=== PATIENT | male | born 1945 | race Caucasian/White ===

== ENCOUNTER 2017-02-19 12:07 | Emergency (ER) | payer MEDICARE, SELFPAY ==
[2017-02-19 08:47] LABS: BASO % 0.1 % (0.2-1.2); GRAN # 18.1 10_X3_uL (1.8-5.4); GRAN % 78.9 % (34.0-67.9); HEMATOCRIT 40.1 % (40-51); HEMOGLOBIN 12.8 g/dL (13.7-17.5); LYMPH # 3.4 10_X3_uL (1.3-3.6); LYMPH % 14.6 % (21.8-53.1); MEAN CORPUSCULAR HEMOGLOBIN 32.6 pg (27.0-33.0); MEAN CORPUSCULAR HGB CONC 31.9 g/dL (32.0-36.0); MEAN PLATELET VOLUME 11.3 fl (7.5-11.5); MONO # 1.5 10_X3_uL (0.3-0.8); MONO % 6.4 % (5.3-12.2); PLATELET COUNT 319 x10_3/uL (163-337); RED BLOOD COUNT 3.93 x10_6/uL (4.6-6.1); RED CELL DISTRIBUTION WIDTH 13.6 % (11.6-14.4)
[2017-02-19 08:55] LABS: BILIRUBIN,TOTAL 0.52 mg/dL (0.0-1.0); CALCIUM 10.5 mg/dL (8.7-10.7); CREATININE 1.6 mg/dL (0.6-1.3); POTASSIUM 4.4 mmol/L (3.5-5.1); TOTAL PROTEIN 7.3 gm/dL (6.4-8.2); URIC ACID 6.3 mg/dL (3.5-7.2)
[2017-02-19 08:58] LABS: CREATININE, URINE 174.7 mg/dl (33-250)
[2017-02-19 09:19] LABS: MICROALBUMIN < 12.0 mg/L (1.3-20.0)
[2017-02-19 12:40] LABS: URINE BILIRUBIN NEGATIVE (NEGATIVE); URINE BLOOD NEGATIVE (NEGATIVE); URINE GLUCOSE (UA) NORMAL (NORMAL); URINE KETONE NEGATIVE (NEGATIVE); URINE LEUKOCYTE ESTERASE 1+ (NEGATIVE); URINE NITRATE NEGATIVE (NEGATIVE); URINE PROTEIN TRACE (NEGATIVE); UROBILINOGEN NORMAL mg/dL (<1.0)
[2017-02-19 12:51] LABS: URINE BACTERIA TRACE (NONE SEEN); URINE RBC 0-5 /[HPF] (0-2); URINE SQUAMOUS EPITHELIAL CELL 0-10 /[HPF] (NONE SEEN); URINE WBC 0-5 /[HPF] (0-3)
== END 2017-02-19 13:23 ==
LOC: EDSTATUS 12:07 → ER 12:08
PROVIDERS: Family Medicine
DX: E11.9 Type 2 diabetes mellitus without complications (principal); E78.5 Hyperlipidemia, unspecified; M10.9 Gout, unspecified; E03.9 Hypothyroidism, unspecified; E55.9 Vitamin D deficiency, unspecified; N41.9 Inflammatory disease of prostate, unspecified; I10 Essential (primary) hypertension; Z79.899 Other long term (current) drug therapy; Z79.82 Long term (current) use of aspirin
CPT/HCPCS: 36415; 71020; 80053; 80061; 81001; 82043; 82306; 82570; 83036; 83735; 84443; 84550; 85025; 99283; 99283-25